=== PATIENT | male | born 1960 | race African-American/Black ===

== ENCOUNTER 2022-05-28 08:58 | Emergency (ER) | payer OTHER ==
[~2022-05-28] VITALS: Ht 180.3 cm; Wt 91.0 kg
[2022-05-28 09:09] VITALS: BP 167/100
[2022-05-28] MEDS ORDERED: KETOROLAC 60MG/2ML VIAL IM ONE (09:30)
== END 2022-05-28 14:44 | disposition home or self-care (01) ==
LOC: ER 08:58
DX: T14.8XXA Other injury of unspecified body region, initial encounter (principal); M48.52XA Collapsed vertebra, not elsewhere classified, cervical region, initial encounter for fracture; X58.XXXA Exposure to other specified factors, initial encounter; I10 Essential (primary) hypertension; Y93.89 Activity, other specified; Y92.89 Other specified places as the place of occurrence of the external cause; Y99.8 Other external cause status
CPT/HCPCS: 72100; 72131; 96372; 99284; J1885